=== PATIENT | male | born 1940 | race Caucasian/White ===

== ENCOUNTER → 2021-01-13 | Day surgery (SDC) | payer MEDICARE ==
[~2021-01-13] VITALS: Ht 180.3 cm; Wt 114.8 kg
[~2021-01-13] MED LIST: ASPIRIN325 PO; BACTRIM DS TAB1 EACH PO; CARDURA XL4 MG PO; CARDURA4 MG PO; CEFUROXIME500 MG PO; COUMADIN 5 MG TA5 M1; COUMADIN 5 MG TA5 M1 PO; ENOXAPARIN100 MG/11 SUBQ; FLOMAX0.4 MG PO; FLORANEX TABLE1 EACH PO; HYDROCHLOROTHIA25 M2 PO; JANTOVEN5 MG PO; LIPITOR10 MG PO; LISINOPRIL10 MG PO; MOEXIPRIL-HCTZ1 EAC1 PO; PERCOCET 5-3251 EACH PO; PERCOCET PO; PREDNISONE 10 M10 MG PO; PROSCAR 5MG TABL5 MG PO; TOPROL XL50 MG PO; WHEELCHAIR1 EACH MC
--- NOTE | ~2021-01-13 | O ---
[facility] [address] [place] [facility] [place] [address] OPERATIVE REPORT Name: DARLINE SANDOVAL Room #: REG [facility]..#: [id number] Admission: 01/13/21 Attend Phys: Elroy Valderrama MD Discharge: Date of : 36 Report #: [id number] THIS REPORT FOR: cc: Hannah Willingham,Elroy Nair MD ~ DOC #: [id number] cc: Hannah Valderrama MD DATE OF SERVICE: 01/13/2021 PREOPERATIVE DIAGNOSIS: Tumor of left upper lid, lower lid and medial canthus. POSTOPERATIVE DIAGNOSIS: Tumor of left upper lid, lower lid and medial canthus. PROCEDURES: Excision of lesion of left upper lid, lower lid and medial canthus with frozen section, control of margins and myocutaneous flap repair of defect. SURGEON: Elroy Valderrama MD GRADES 1 THRU 6 HOME TEACHER: None. ANESTHESIA: MAC. COMPLICATIONS: None. INDICATIONS: This pleasant 80-year-old gentleman has a nodular ulcerated mass in his left medial canthus that extends onto his medial upper lid and lower lid. The lesion is thought to most likely be a basal cell carcinoma. He presents today for excision of this lesion with frozen sections and subsequent reconstruction of that defect. Informed consent was obtained to include but not limited to the potential risk for loss of vision, bleeding, infection, failure to improve the problem, and the potential need for further surgery or treatment. DESCRIPTION OF PROCEDURE: The patient was taken to the operating room where 2% Xylocaine with epinephrine mixed with equal parts 0.75% Marcaine with Wydase was administered transcutaneously to the left medial canthus, the glabella, the medial left upper lid and the medial left lower lid. The patient was subsequently prepped and draped in the usual sterile fashion. A fine tip skin marking pen was then utilized to outline the lesion including approximately 2 mm of normal appearing tissue. The incisions were then made in the previously outlined area, dissecting down into the orbicularis muscle and then down to periosteum over the nasal bridge. The specimen was then oriented on a drawing for the waiting pathologist as hemostasis was achieved in the field with diligent pinpoint monopolar cautery. The pathologist snap froze that tissue and [address] [address] OPERATIVE REPORT Name: LORIDARLINE Ariella Room #: REG [facility].#: [id number] Admission: 01/13/21 Attend Phys: Elroy Valderrama MD Discharge: Date of : 36 Report #: [id number] felt that our margins were clear. A myocutaneous flap was then developed superiorly to be rotated inferolaterally. Hemostasis was then re-achieved. The flap was then advanced and secured with interrupted buried 6-0 Vicryl sutures followed by a skin closure of 6-0 plain gut sutures. The wounds were then cleaned and dressed with erythromycin ophthalmic ointment. The patient subsequently transported to the recovery area having tolerated the procedure well with no anesthetic or operative complications being noted. Elroy Valderrama MD WLW/KDA By: 1201 1213 Elroy Valderrama MD /nt
[2021-01-13 11:30] VITALS: BP 173/87
[2021-01-13 11:44] LABS: PROTIME 10.9 Seconds (10.5-12.1)
--- NOTE | 2021-01-14 17:07 | PATH ---
[facility] [address] [address] PATHOLOGY RPT PROCEDURE Name: DARLINE SANDOVAL Room #: REG [facility]#: [id number] Admission: 01/13/21 Date of : 36 Discharge: Report #: [id number] Path Case #: [id number] [facility] Accession Number: [id number] . 01 Material submitted: . eye - LESION LEFT EYE MEDIAL CANTHUS UPPER LID LOWER LID FS. Modifiers: left . 01 Clinician provided ICD-10: D23.122 . 01 Clinical history: . EXCISION LESION EYE BENIGN NEOPLASM SKIN . 02 Frozen section diagnosis: . FROZEN SECTION DIAGNOSIS (Mary Ayala MD) . Skin, lesion left eye medial canthus/upper lid/lower lid, excision: - BASAL CELL CARCINOMA. - Margins free of invasive carcinoma on FS slides. . These findings are discussed with Dr. Elroy Valderrama in OR6 and a written report is placed in the patient's chart. . . Frozen section performed at [facility], [address] [place] [address]. . . FROZEN SECTION GROSS DESCRIPTION Specimen is received fresh from the OR labeled with the patient's name, and "lesion left eye medial canthus/upper lid/lower lid", consists of an oriented ellipse of skin measuring 1.5 x 0.7 x 0.3 cm. The medial to superior to lateral margin is inked black, the lateral to inferior margin is inked blue, and the inferior to medial margin is inked green. At this point, the specimen is serially sectioned and entirely submitted for frozen section as FSA1, this is subsequently submitted for permanent sections as A1. (IUV:chris; 01/13/2021) . IZV/QMS . 02 Diagnosis: Skin, lesion left eye medial canthus/upper lid/lower lid, excision: - Basal cell carcinoma. - Margins of resection free of malignancy. [address] [address] PATHOLOGY RPT PROCEDURE Name: DARLINE SANDOVAL Room #: REG [facility].#: [id number] Admission: 01/13/21 Date of : 36 Discharge: Report #: [id number] Path Case #: [id number] (IUV:lead consultant; 01/14/2021) MBR 01/14/2021 [facility]2 Local . 02 Electronically signed: . Mary Ayala MD, Pathologist NPI- [id number] . 01 Gross description: . PLEASE SEE GROSS DESCRIPTION UNDER FROZEN SECTION DIAGNOSIS. /QMS 01/13/2021 [facility]7 Local . 02 Pathologist provided ICD-10: C44.1192, C44.1191 . 02 CPT . 551908, 130121 Specimen Comment: A courtesy copy of this report has been sent to [phone], [phone] Specimen Comment: [phone] Specimen Comment: Report sent to / DR DAVIES Performed at: [address] [facility], [place] [id number] MD Benedicto Chong MD Phone: [phone] Performed at: [address] [id number] MD Mary Ayala MD Phone: [phone]
== END | disposition home or self-care (01) ==
LOC: OR 08:10
PROVIDERS: ATTEND Ophthalmology
DX: C44.1192 Basal cell carcinoma of skin of left lower eyelid, including canthus (principal); C44.1191 Basal cell carcinoma of skin of left upper eyelid, including canthus; I10 Essential (primary) hypertension; Z98.890 Other specified postprocedural states; Z79.899 Other long term (current) drug therapy; Z86.73 Personal history of transient ischemic attack (TIA), and cerebral infarction without residual deficits; Z85.828 Personal history of other malignant neoplasm of skin; Z86.718 Personal history of other venous thrombosis and embolism; Z79.01 Long term (current) use of anticoagulants
CPT/HCPCS: 50010; 50101; 50386; 50398; 51636; 56528; 56531; 62110; 62850; 70005